=== PATIENT | female | born 1980 | race Caucasian/White ===

== ENCOUNTER 2023-04-29 08:17 | Outpatient (CLI) | payer OTHER, SELFPAY ==
--- NOTE | ~2023-04-29 | CT_ITS ---
EXAMINATION: CT sinus wo con DATE: 04/29/2023 08:31 INDICATION: Chronic sinusitis TECHNIQUE: Computed tomography (CT) of the paranasal sinuses was performed without contrast. Iterativ e reconstruction technique was employed. Exam dose: 276.47 mGy-cm total exam DLP. COMPARISON: None FINDINGS: There is rightward bowing of the nasal septum. Soft tissue thickening at the middle meatus, right worse than left There is partial opacification of the middle meatus and infundibulum bilaterally. The frontal sinuses are clear except for soft tissue thickening at the frontoethmoid areas . There is patchy opacification of the ethmoid air cells bilaterally. There is mild mucoperiosteal thickening of the maxillary sinuses bilaterally. There is minimal mucoperiosteal thickening of the right sphenoid sinus. The mastoid air cells are normally developed and aerated. IMPRESSION: Rightward bowing of nasal septum Soft tissue thickening at middle meatus, right worse than left Partial opacification of maxillary ostium and infundibulum bilaterally Mild mucoperiosteal thickening at the frontoethmoid areas, maxillary sinuses and right sphenoid sinus Patchy opacification of the ethmoid air cells bilaterally Reviewed, dictated and finalized at [facility]. Reviewed, dictated and finalized at [facility]. IMPRESSION: Rightward bowing of nasal septum Soft tissue thickening at middle meatus, right worse than left Partial opacification of maxillary ostium and infundibulum bilaterally Mild mucoperiosteal thickening at the frontoethmoid areas, maxillary sinuses an d right sphenoid sinus Patchy opacification of the ethmoid air cells bilaterally
== END 2023-04-29 08:18 ==
LOC: MICIMG 08:19
PROVIDERS: PCP Allergy & Immunology; Visit Provider Allergy & Immunology
DX: J34.2 Deviated nasal septum (principal); J32.8 Other chronic sinusitis
CPT/HCPCS: 70486